=== PATIENT | female | born 1995 | race Two or more races ===

== ENCOUNTER 2018-01-07 12:43 | Emergency (ER) | payer MEDICAID ==
[~2018-01-07] VITALS: Ht 162.6 cm; Wt 81.6 kg
[2018-01-07 12:51] VITALS: BP 121/78
[2018-01-07] MEDS ORDERED: Methocarbamol 500mg tab ORAL ONE (13:45)
--- NOTE | 2018-01-07 14:13 | Emergency Room Report ---
History of Present Illness General Chief Complaint: Pain Source: Patient Present Illness HPI 22-year-old female presents to the emergency department complaining of 8/10 in severity localized pain in the right posterior shoulder x3 days. Patient also reports right-sided rib cage pain that is intermittent. Patient states that last night when she was lying down she experienced exacerbation of her pain and wheezing/difficulty breathing. She reports history of asthma she denies recent cough or cold symptoms denies fevers, chills, abdominal pain, nausea or vomiting. She denies trauma or falls. The patient reports that she has been out of her albuterol inhaler. Patient denies recent travel. Denies numbness tingling or loss of sensation or gross motor movements of the extremities, incontinence of bowel or bladder. Denies CP, Palpitations, LOC, AMS, dizziness, Changes in Vision, Sensation, paresthesias, or a sudden severe headache. Pt. Denies pain at this time. Allergies: Coded Allergies: NAPROXEN (Verified Allergy, Unknown, 01/07/18) Patient History Past Medical History: see triage record Past Surgical History: none Pertinent Family History: none Last Menstrual Period: 12/13/17 Reviewed Nursing Documentation: PMH: Agreed, PSxH: Agreed Nursing Documentation-PMH Past Medical History: No Stated History Review of Systems All Other Systems: negative except mentioned in HPI Physical Exam Vital Signs Date Time Temp Pulse Resp B/P (MAP) Pulse Ox O2 Delivery O2 Flow Rate FiO2 01/07/18 12:51 98.7 91 18 121/78 100 Room Air 98.7 Sp02 EP Interpretation: reviewed, normal General Appearance: no apparent distress, alert, GCS 15, non-toxic Head: normocephalic, atraumatic ENT: hearing grossly normal, normal voice Neck: full range of motion Respiratory: chest non-tender, lungs clear, normal breath sounds, no respiratory distress, no wheezing, speaking full sentences Cardiovascular #1: regular rate, rhythm, no edema, normal capillary refill Gastrointestinal: normal bowel sounds, non tender, soft, non-distended, no guarding Musculoskeletal: back normal, gait/station normal, normal range of motion, tender - TTP to right trapezius and right upper back, no midline ttp. pain is more lateral, FROM of right shoulder, no TTP to the actual shoulder joint. Neurologic: alert, oriented x3, responsive, motor strength/tone normal, sensory intact, speech normal, grossly normal Psychiatric: judgement/insight normal Skin: normal color, no rash, warm/dry, well hydrated Medical Decision Making PA Attestation Dr. rojas is my supervising Physician whom patient management has been discussed with. Diagnostic Impression: Primary Impression: Muscle strain ER Course 22-year-old female presents to the emergency department complaining of 8/10 in severity localized pain in the right posterior shoulder x3 days. Patient also reports right-sided rib cage pain that is intermittent. Patient states that last night when she was lying down she experienced exacerbation of her pain and wheezing/difficulty breathing. She reports history of asthma she denies recent cough or cold symptoms denies fevers, chills, abdominal pain, nausea or vomiting. She denies trauma or falls. The patient reports that she has been out of her albuterol inhaler. Patient denies recent travel. Denies numbness tingling or loss of sensation or gross motor movements of the extremities, incontinence of bowel or bladder. Denies CP, Palpitations, LOC, AMS, dizziness, Changes in Vision, Sensation, paresthesias, or a sudden severe headache. Pt. Denies pain at this time. Ddx considered but are not limited to Fracture, dislocation, contusion, Sprain/ Strain/Spasm PE, PNA just to name a few. Vital signs: are WNL, pt. is afebrile H&PE are most consistent with shoulder and upper back strain, will r/o pneumonia, or referred pain from diaphragm - negative abdominal exam. pain reproducible with palpation. ORDERS: - X-ray Chest - -CXR: No consolidation, effusion, pneumothorax or acute cardiopulmonary findings per soft read in ED BY CHARLIE Petersen. ED INTERVENTIONS: - Robaxin. -I do not identify an emergent condition at this time. With current presentation , pt. is stable for close outpatient follow up and conservative treatment. D/ w pt. to return promptly to ED with worsening or new symptoms.- Pt. (and or responsible green party) verbalizes' understanding and agreement with proposed treatment plan.proposed treatment plan. DISCHARGE: At this time pt. is stable for d/c to home. Will provide printed patient care instructions, and any necessary prescriptions. Care plan and follow up instructions have been discussed with the patient prior to discharge. Chest X-Ray Diagnostic Results Chest X-Ray Diagnostic Results : Chest X-Ray Ordered: Yes # of Views/Limited/Complete: 1 View Indication: Shortness of Breath - wheezing when lying flat. EP Interpretation: Yes PA Xray: Interpretation reviewed, by supervising MD, and agrees with findings. Interpretation: no consolidation, no effusion, no pneumothorax, no acute cardiopulmonary disease Impression: No acute disease Electronically Signed by: Marietta Petersen PA-C Last Vital Signs Date Time Temp Pulse Resp B/P (MAP) Pulse Ox O2 Delivery O2 Flow Rate FiO2 01/07/18 12:51 98.7 91 18 121/78 100 Room Air 98.8 Disposition: HOME, SELF-CARE Condition: Stable Scripts Albuterol Sulfate* (ALBUTEROL SULFATE MDI*) 8.5 Gm Hfa.aer.ad 2 PUFF INH Q4H, #1 INH 0 Refills Prov: Marietta Petersen 01/07/18 Methocarbamol* (ROBAXIN*) 500 Mg Tablet 1000 MG PO TID, #42 TAB 0 Refills Prov: Marietta Petersen 01/07/18 Referrals: NON PHYSICIAN (PCP) Patient Instructions: Muscle Cramps and Spasms, [id number], Shoulder Pain, [id number] Additional Instructions: Take medications as directed. Follow up with a Primary Care Provider in 3-5 days, even if your symptoms have resolved. --Please review list of primary care clinics, if you do not already have a primary care provider Return sooner to ED if new symptoms occur, or current symptoms become worse. Do not drink alcohol, drive, or operate heavy machinery while taking Muscle relaxers as this may cause drowsiness. - Please note that this Emergency Department Report was dictated using [employer] laundry attendant technology software, occasionally this can lead to erroneous entry secondary to interpretation by the dictation equipment. Marietta Petersen Jan 07, 2018 14:13
[2018-01-07] MEDS ORDERED: ROBAXIN500 MG PO (14:19)
[2018-01-07] MEDS ORDERED: ALBUTEROL SULF8.5 GM INH (14:19)
[2018-01-07 14:31] VITALS: BP 121/78
--- NOTE | 2018-01-07 14:34 | Diagnostic Imaging Report ---
Indication: Dyspnea Comparison: None A single view chest radiograph was obtained. Findings: Cardiomediastinal appearance is within normal limits for age. Pulmonary vascularity is appropriate. The diaphragmatic contour is smooth and costophrenic angles are sharp. No pleural effusions are identified. The bones are unremarkable. Impression: No acute findings
== END 2018-01-07 14:33 | disposition home or self-care (01) ==
LOC: EMR 13:19
DX: S46.911A Strain of unspecified muscle, fascia and tendon at shoulder and upper arm level, right arm, initial encounter (principal); S29.011A Strain of muscle and tendon of front wall of thorax, initial encounter; X58.XXXA Exposure to other specified factors, initial encounter; Y92.9 Unspecified place or not applicable
CPT/HCPCS: 71045; 99284